=== PATIENT | female | born 1985 | race Caucasian/White ===

== ENCOUNTER 2016-09-15 11:23 | Emergency (ER) | payer OTHER ==
[2016-09-15] MEDS ORDERED: ONDANSETRON HCL 4 MG/2 ML VIAL ONE (11:48)
[2016-09-15 11:55] LABS: URINE MUCUS NONE SEEN (Up to 25%)
[2016-09-15 12:08] LABS: BASOPHILS 0.6 % (0.0-2.0); EOSINOPHILS 0.9 % (0.0-6.0); EOSINOPHILS# 0.1 X 10^3uL (0.0-0.4); HEMATOCRIT 41.5 % (36.0-48.0); HEMOGLOBIN 14.2 g/dL (12.0-16.0); LYMPHOCYTES 30.8 % (20.0-40.0); LYMPHOCYTES# 2.1 X 10^3uL (0.8-3.8); MEAN CELL VOLUME 81.6 fL (80.0-100.0); MEAN CORPUS. HGB CONCENTRATION 34.3 g/dL (32.0-36.0); MEAN PLATELET VOLUME 8.3 fL (7.4-10.4); MONOCYTES 7.8 % (2.0-10.0); MONOCYTES# 0.5 X 10^3uL (0.2-1.0); NEUTROPHILS 59.9 % (54.0-75.0); NEUTROPHILS# 4.2 X 10^3uL (2.6-6.7); PLATELET COUNT 318 X 10^3uL (130-440); RED BLOOD COUNT 5.08 X 10^6uL (4.20-6.10); RED CELL DISTRIBUTION WIDTH 12.9 % (11.5-14.5); WHITE BLOOD COUNT 6.9 X 10^3uL (3.9-10.7)
[2016-09-15 12:10] LABS: A/G RATIO 1.2; ALBUMIN 4.3 g/dL (3.5-5.0); ALKALINE PHOSPHATASE 54 U/L (38-126); ALT 39 U/L (9-52); AST 30 U/L (14-36); BILIRUBIN, TOTAL 0.8 mg/dL (0.2-1.3); BLOOD UREA NITROGEN 13 mg/dL (7-17); CALCIUM 10.4 mg/dL (8.4-10.2); CHLORIDE 103 mmol/L (98-107); EST GLOMERULAR FILTRATION RATE > 60 mL/min; GLUCOSE 92 mg/dL (70-100); SODIUM 141 mmol/L (137-145)
[2016-09-15 12:18] LABS: URINE APPEARANCE CLEAR; URINE BILIRUBIN NEGATIVE (NEGATIVE); URINE BLOOD 50 Ery/uL (2+) (NEGATIVE); URINE COLOR YELLOW; URINE GLUCOSE NORMAL (NEGATIVE); URINE KETONE NEGATIVE (NEGATIVE); URINE LEUKOCYTE ESTERASE NEGATIVE (NEGATIVE); URINE NITRITE NEGATIVE (NEGATIVE); URINE PROTEIN NEGATIVE (NEG - TRACE); URINE SQUAMOUS EPITHELIAL CELL 0-5/hpf (<= 15/hpf); URINE UROBILINOGEN NORMAL (NEG-1mg/dL); URINE WBC 0-4/hpf (0-4/hpf)
[2016-09-15 12:19] LABS: URINE BACTERIA NONE SEEN (<10/hpf)
--- NOTE | 2016-09-15 13:10 | ER NURSING DOCUMENTATION ---
Nurse's Notes [facility] Name:Yesenia Chambers Age:31 yrs Sex:Female :1985 Arrival Date:09/15/2016 Time:11:23 Bed1 Private MD: Diagnosis:Traveller's Diarrhea Presentation: 09/15 11:28 Acuity: JAYNA 3 lc 11:29 Presenting complaint: Patient states: [place], since then has had lb nausea, dizziness, not sleeping well. is able to take fluids and eat. Transition of care: Camp. Notified ED Physician of Dr. Van notified. 11:29 Method Of Arrival: Walk In lb 11:30 Time Last Known Well for the patient was 5 days ago. lb Triage Assessment: 11:31 General: Appears in no apparent distress, Behavior is appropriate for age, pleasant. lb Pain: Denies pain. EENT: No deficits noted. Neuro: No deficits noted. Cardiovascular: No deficits noted. Respiratory: Airway is patent Trachea midline Respiratory effort is even, unlabored, Respiratory pattern is regular, symmetrical, Breath sounds are clear bilaterally. GI: Reports nausea. : No deficits noted. Derm: No deficits noted. Musculoskeletal: No deficits noted. Historical: - Allergies: No known drug Allergies; - PMHx: None; - PSHx: hemorrhoidectomy; - Tetanus: < 10 years. - Ebola Screening: : Patient denies exposure to infectious person. Patient denies travel to an Ebola-affected area in the 21 days before illness onset. . - Immunization history: Flu Vaccine < 1 year. - Social history: Smoking status: Patient states was never smoker of tobacco. Patient uses alcohol only on a social basis. - Code Status:: Full code. Screenin:32 Infectious Disease Risk None. Abuse screen: Denies threats or abuse. Denies injuries lb from another. Nutritional screening: No deficits noted. Assessment: 11:32 See Triage Assessment done by same RN. General: Appears in no apparent distress. Pain: lb Denies pain. Neuro: No deficits noted. EENT: No deficits noted. Cardiovascular: No deficits noted. Respiratory: No deficits noted. GI: Reports nausea. Vital Signs: 11:29 BP 133 / 99 LA Sitting (auto/reg); Pulse 90 LA; Resp 16 S; Temp 97.5(O); Pulse Ox 96% em3 on R/A; Weight 74.84 kg (R); Height 5 ft. 0 in. (152.40 cm) (R); Pain 0/10; 11:29 Body Mass Index 32.22 (74.84 kg, 152.40 cm) em3 ED Course: 11:24 Patient arrived in ED. em3 11:28 Triage completed. 11:29 Lorrie Magallanes is Primary Nurse. alexis 11:29 Rashaad Van MD is Attending Physician. be 11:30 Valuables Remains with patient Patient has correct armband on for positive em3 identification. Bed in low position. Call light in reach. 11:49 Inserted peripheral IV: 22 gauge in left antecubital area and blood collected. lb Administered Medications: 11:48 Drug: NS 0.9% 1000 ml; Route: IV; Rate: bolus; Site: left antecubital; lb 13:09 Follow up: IV Status: Completed infusion; IV Intake: 1000ml sj 11:48 Drug: Zofran 8 mg; Route: IVP; Infused Over: 2 mins; Site: left antecubital; lb 13:09 Follow up: Response: Nausea is decreased sj Intake: 13:09 IV: 1000ml; Total: 1000ml. Outcome: 11:34 Discharge ordered by . be 13:08 Discharged to home ambulatory, with family. sj 13:08 Condition: stable 13:08 Instructed on discharge instructions, follow up and referral plans. medication usage, Demonstrated understanding of instructions, medications, Prescriptions given X 1. 13:10 Patient left the ED. sj 09/16 09:24 Discharge F/U Call: Unable to reach: no answer rh Signatures: Maria G Man, RN RN Rashaad Van MD MD be Meiklejohn, Eric em3 Tova Teran Dee, Elizabeth Lorrie Magallanes
--- NOTE | 2016-09-15 13:10 | ER PHYSICIAN DOCUMENTATION ---
Physician Documentation [facility] Name:Yesenia Chambers Age:31 yrs Sex:Female :1985 Arrival Date:09/15/2016 Time:11:23 Bed1 Private MD: Rashaad Kelly Disposition: 09/15/16 11:34 Discharged to Home/Self Care. Impression: Traveller's Diarrhea. - Condition is Good. - Discharge Instructions: Diarrhea - TRAVELER'S DIARRHEA (4y-Adult). - Prescriptions for Zofran 8 mg Oral - take 1 tablet by ORAL route 3 times per day PRN N/V; 20 tablet. - Medical Reconciliation form form. - Follow up: Private Physician; When: As needed; Reason: Worsening of condition. - Problem is new. - Symptoms have improved. HPI: 09/15 13:24 This 31 yrs old Female presents to ER via Walk In with complaints of be Dizziness. 13:24 Context: assoc/w nausea and 2-3 loose, non-bloody/mucous stools since arriving from NH, be mid-week. Denies F/C/C/V or urinary symptoms. Using Pepto-Bismol w/ improvement. Historical: - Allergies: No known drug Allergies; - PMHx: None; - PSHx: hemorrhoidectomy; - Tetanus: < 10 years. - Ebola Screening: : Patient denies exposure to infectious person. Patient denies travel to an Ebola-affected area in the 21 days before illness onset. . - Immunization history: Flu Vaccine < 1 year. - Social history: Smoking status: Patient states was never smoker of tobacco. Patient uses alcohol only on a social basis. - Code Status:: Full code. ROS: 13:24 Neuro: Positive for dizziness, weakness, Negative for altered mental status, headache. be 13:24 All other systems are negative. Exam: 13:24 Constitutional: This is a well developed, well nourished patient who is awake, alert, be and in no acute distress. Head/Face: Normocephalic, atraumatic. Eyes: Pupils equal round and reactive to light, extra-ocular motions intact. Lids and lashes normal. Conjunctiva and sclera are non-icteric and not injected. Cornea within normal limits. Periorbital areas with no swelling, redness, or edema. ENT: Nares patent. No nasal discharge, no septal abnormalities noted. Tympanic membranes are normal and external auditory canals are clear. Oropharynx with no redness, swelling, or masses, exudates, or evidence of obstruction, uvula midline. Mucous membranes moist. Neck: Trachea midline, no thyromegaly or masses palpated, and no cervical lymphadenopathy. Supple, full range of motion without nuchal rigidity, or vertebral point tenderness. No Meningismus. Chest/axilla: Normal chest wall appearance and motion. Nontender with no deformity. No lesions are appreciated. Cardiovascular: Regular rate and rhythm with a normal S1 and S2. No gallops, murmurs, or rubs. Normal PMI, no JVD. No pulse deficits. Respiratory: Lungs have equal breath sounds bilaterally, clear to auscultation and percussion. No rales, rhonchi or wheezes noted. No increased work of breathing, no retractions or nasal flaring. 13:24 Abdomen/GI: Soft, non-tender, with normal bowel sounds. No distension or tympany. No be guarding or rebound. No evidence of tenderness throughout. 13:24 Neuro: Orientation: is normal, Cerebellar function: is grossly normal, Gait: is steady, at a normal pace, without difficulty. Vital Signs: 11:29 BP 133 / 99 LA Sitting (auto/reg); Pulse 90 LA; Resp 16 S; Temp 97.5(O); Pulse Ox 96% em3 on R/A; Weight 74.84 kg (R); Height 5 ft. 0 in. (152.40 cm) (R); Pain 0/10; 11:29 Body Mass Index 32.22 (74.84 kg, 152.40 cm) em3 MDM: 11:29 Patient medically screened. be 13:24 Differential diagnosis: cardiac arrhythmia, generalized weakness, hypovolemia, sepsis. be Data reviewed: vital signs, nurses notes, lab test result(s), and as a result, I will discharge patient, administer IV fluids, NS bolus, Zofran with improvement. 09/15 12:19 Order name: HCG, URINE; Complete Time: 12:34 EDMS 09/15 12:34 Interpretation: Normal. be 09/15 12:19 Order name: UA W/ MICRO -CULTURE IF IND; Complete Time: 12:34 EDMS 09/15 12:34 Interpretation: Normal. be 09/15 12:20 Order name: CBC AUTO DIF, MDIF/RMOR IF IND; Complete Time: 12:34 EDMS 09/15 12:34 Interpretation: Normal. be 09/15 12:20 Order name: COMPREHENSIVE METABOLIC PANEL; Complete Time: 12:34 EDMS 07 12:34 Interpretation: Normal. be Dispensed Medications: 11:48 Drug: NS 0.9% 1000 ml; Route: IV; Rate: bolus; Site: left antecubital; lb 13:09 Follow up: IV Status: Completed infusion; IV Intake: 1000ml 11:48 Drug: Zofran 8 mg; Route: IVP; Infused Over: 2 mins; Site: left antecubital; lb 13:09 Follow up: Response: Nausea is decreased sj Signatures: Rashaad aVn MD MD be Janzen, Sarah sj Bollock, Lynda lb
== END 2016-09-15 13:10 | disposition home or self-care (01) ==
LOC: ER 11:23
DX: A09 Infectious gastroenteritis and colitis, unspecified (principal); R42 Dizziness and giddiness; R11.0 Nausea
CPT/HCPCS: 80053; 81001; 84703; 85025; 96361; 96374; 99284; J2405